=== PATIENT | female | born 1960 | race Caucasian/White ===

== ENCOUNTER 2019-09-12 11:35 | Emergency (ER) | payer MEDICARE ==
[~2019-09-12] VITALS: Ht 162.6 cm; Wt 65.0 kg
[~2019-09-12 11:35] MED LIST: ALTOPREV40 MG PO; HYDROXYZ HCL50 MG PO; INDERAL10 M1 PO; KLONOPIN0.5 MG PO; LAMICTAL ODT100 MG PO; LAMICTAL ODT200 MG PO; LAMICTAL XR300 MG PO; LAMICTAL100 M1 PO; LAMICTAL150 M1 PO; LAMICTAL150 MG PO; LAMICTAL200 M1 PO; LEVOTHYROXIN150 MCG PO; PAROXETINE20 MG PO; PAXIL40 MG PO; SEROQUEL200 MG PO; SEROQUEL300 MG PO; SEROQUEL400 MG PO; TRAZODONE HCL100 MG PO
[2019-09-12] MEDS ORDERED: VOLTAREN1%GEL TOP (12:57)
[2019-09-12] MEDS ORDERED: CYCLOBENZAPR5 MG PO (12:57)
[2019-09-12 14:10] VITALS: BP 138/70
== END 2019-09-12 14:10 | disposition home or self-care (01) ==
LOC: ED 11:35
DX: M54.5 Low back pain (principal); E07.9 Disorder of thyroid, unspecified; F17.200 Nicotine dependence, unspecified, uncomplicated

== ENCOUNTER 2019-09-28 08:58 | Emergency (ER) | payer MEDICARE ==
[~2019-09-28] VITALS: Ht 162.6 cm; Wt 60.0 kg
[~2019-09-28 08:58] MED LIST changes: +CYCLOBENZAPR5 MG PO; +VOLTAREN1%GEL TOP
[2019-09-28] MEDS ORDERED: TRAMADOL HYDROC50 M1 PO (09:12)
[2019-09-28] MEDS ORDERED: MOTRIN400 MG PO (09:12)
[2019-09-28] MEDS ORDERED: CYCLOBENZAPR5 MG PO (09:53)
[2019-09-28 10:58] VITALS: BP 128/73
== END 2019-09-28 10:58 | disposition home or self-care (01) ==
LOC: ED 08:58
DX: M54.41 Lumbago with sciatica, right side (principal)